=== PATIENT | female | born 1965 | race African-American/Black ===

== ENCOUNTER 2016-10-05 11:06 | Emergency (ER) | payer OTHER ==
[~2016-10-05] VITALS: Ht 167.6 cm; Wt 140.9 kg
[~2016-10-05 11:06] MED LIST: ADVIL LIQUI-GE200 MG PO; ADVIL100 MG/5 M PO; AMOXICILLIN 8751 TAB PO; CLARITIN 1010 MG/TAB PO; FLEXERIL 1010 MG/TAB PO; HCTZ12.5TAB; LORTAB 5/500 501 TAB PO; NEXIUM 40MG40 MG PO; NEXIUM40 MG PO; NORCO 325 MG-51 TAB PO; PENICILLIN250 MG PO; PHENERGAN 25 TA25 MG PO; PROAIR HFA0.09 MG/AC IH; ULTRAM 50MG TAB50 MG; ULTRAM 50MG TAB50 MG PO; XANAX1 MG PO; ZOFRAN 4MG T4 MG/TAB PO; ZOFRAN4 MG PO
[2016-10-05 11:08] VITALS: BP 162/81; PULSE 76; TEMP 97.7
[2016-10-05] MEDS ORDERED: HYGROTON 2525 MG/TAB (11:11)
[2016-10-05] MEDS ORDERED: ROBAXIN 75750 MG/TAB PO (14:02)
== END 2016-10-05 14:17 | disposition home or self-care (01) ==
LOC: COL.ER 11:06
DX: S39.012A Strain of muscle, fascia and tendon of lower back, initial encounter (principal); M54.42 Lumbago with sciatica, left side; X50.0XXA Overexertion from strenuous movement or load, initial encounter; I10 Essential (primary) hypertension
CPT/HCPCS: J1885; J2360

== ENCOUNTER 2016-12-27 12:08 | Emergency (ER) | payer OTHER ==
[~2016-12-27 12:08] MED LIST changes: +HYGROTON 2525 MG/TAB; +ROBAXIN 75750 MG/TAB PO
[2016-12-27 12:13] VITALS: BP 142/71; TEMP 98.5
[2016-12-27] MEDS ORDERED: PRILOSEC 20MG20 MG PO (12:19)
[2016-12-27] MEDS ORDERED: MICROZIDE12.5 MG PO (12:19)
[2016-12-27] MEDS ORDERED: ULTRAM 50MG TAB50 MG PO (13:00)
[2016-12-27] MEDS ORDERED: FLEXERIL 1010 MG/TAB PO (13:49)
[2016-12-27] MEDS ORDERED: NORCO 325 MG-51 TAB PO (13:53)
[2016-12-27 13:57] VITALS: PULSE 74
[2018-07-05] MEDS ORDERED: CAPSAICIN0.025% TOP (09:38)
[2018-07-05] MEDS ORDERED: MASON NATURAL325 MG PO (09:40)
[2018-07-05] MEDS ORDERED: VOLTAREN GEL 1%1 TU TP (09:40)
[2018-07-05] MEDS ORDERED: VITAMIN D32000 I1 PO (09:41)
[2018-07-05] MEDS ORDERED: PROTONIX 40MG T40 MG PO (09:42)
[2018-07-05] MEDS ORDERED: HYGROTON 2525 MG/TAB PO (09:43)
[2018-07-05] MEDS ORDERED: ALLEGRA 180MG180 MG PO (09:43)
[2018-07-05] MEDS ORDERED: [UNRECOGNIZED DRUG - OTHER] TOP (09:44)
[2018-07-05] MEDS ORDERED: ZOFRAN8 MG PO (16:02)
== END 2016-12-27 13:58 | disposition home or self-care (01) ==
LOC: COL.ER 12:08
DX: M54.32 Sciatica, left side (principal); I10 Essential (primary) hypertension; K21.9 Gastro-esophageal reflux disease without esophagitis; Z90.710 Acquired absence of both cervix and uterus
CPT/HCPCS: J1885; J2360

== ENCOUNTER 2017-02-19 09:08 | Emergency (ER) | payer OTHER ==
[~2017-02-19] VITALS: Ht 167.6 cm; Wt 143.2 kg
[~2017-02-19 09:08] MED LIST changes: +MICROZIDE12.5 MG PO; +PRILOSEC 20MG20 MG PO
[2017-02-19 09:14] VITALS: TEMP 97.9
[2017-02-19] MEDS ORDERED: ULTRAM 50MG TAB50 MG PO (09:57)
[2017-02-19] MEDS ORDERED: SKELAXIN 800MG800 MG PO (09:57)
[2017-02-19 10:56] VITALS: BP 146/98; PULSE 74
== END 2017-02-19 10:43 | disposition home or self-care (01) ==
LOC: COL.ER 09:08
DX: M54.32 Sciatica, left side (principal); I10 Essential (primary) hypertension; K21.9 Gastro-esophageal reflux disease without esophagitis; Z90.710 Acquired absence of both cervix and uterus; Z98.890 Other specified postprocedural states; X50.0XXA Overexertion from strenuous movement or load, initial encounter
CPT/HCPCS: J1885; J2360

== ENCOUNTER 2017-04-24 08:24 | Emergency (ER) | payer OTHER ==
[~2017-04-24] VITALS: Ht 167.6 cm; Wt 143.2 kg
[~2017-04-24 08:24] MED LIST changes: +SKELAXIN 800MG800 MG PO
[2017-04-24 08:27] VITALS: BP 151/74; PULSE 88; TEMP 97.6
[2017-04-24 09:07] LABS: INFLUENZA A NEGATIVE; INFLUENZA B NEGATIVE
[2017-04-24] MEDS ORDERED: AMOXICILLIN 8751 TAB PO (09:16)
[2017-04-24] MEDS ORDERED: DIFLUCAN 100MG100 MG PO (09:16)
== END 2017-04-24 09:36 | disposition home or self-care (01) ==
LOC: COL.ER 08:24
PROVIDERS: Physician Assistant
DX: J32.9 Chronic sinusitis, unspecified (principal)

== ENCOUNTER 2018-02-11 17:25 | Emergency (ER) | payer OTHER ==
[~2018-02-11] VITALS: Ht 167.6 cm; Wt 136.4 kg
[~2018-02-11 17:25] MED LIST changes: +DIFLUCAN 100MG100 MG PO
[2018-02-11 17:35] VITALS: TEMP 97.6
[2018-02-11] MEDS ORDERED: FLEXERIL 1010 MG/TAB PO (18:05)
[2018-02-11] MEDS ORDERED: ULTRAM 50MG TAB50 MG PO (18:05)
[2018-02-11 19:07] VITALS: BP 142/84; PULSE 77
== END 2018-02-11 19:07 | disposition home or self-care (01) ==
LOC: COL.ER 17:25
DX: M54.5 Low back pain (principal); Z90.710 Acquired absence of both cervix and uterus
CPT/HCPCS: J1885; J2360

== ENCOUNTER 2018-11-20 22:33 | Emergency (ER) | payer OTHER ==
[~2018-11-20] VITALS: Ht 167.6 cm; Wt 145.5 kg
[~2018-11-20 22:33] MED LIST changes: +ALLEGRA 180MG180 MG PO; +CAPSAICIN0.025% TOP; +HYGROTON 2525 MG/TAB PO; +MASON NATURAL325 MG PO; +PROTONIX 40MG T40 MG PO; +VITAMIN D32000 I1 PO; +VOLTAREN GEL 1%1 TU TP; +ZOFRAN8 MG PO; +[UNRECOGNIZED DRUG - OTHER] TOP
[2018-11-20 23:08] LABS: HEMOGLOBIN 9.9 g/dl (12.5-16.0); MEAN CELL VOLUME 80 fl (80.0-100.0); MEAN CORPUSCULAR HEMOGLOBIN 24 pg (27.0-31.0); MEAN CORPUSCULAR HGB CONC 30 g/dl (33.0-37.0); PLATELET COUNT 433 K/mm3 (130-400); RED BLOOD COUNT 4.14 M/mm3 (4.10-5.30); REDCELL DISTRIBUTION WIDTH-CV 19.9 % (11.5-14.5)
[2018-11-20 23:13] LABS: ALANINE AMINOTRANSFERASE < 6 U/L (9-52); ALBUMIN 4.2 gm/dL (3.5-5.0); ALKALINE PHOSPHATASE 91 U/L (50-136); ANION GAP 11 mmol/L (7-16); AST,SGOT 25 U/L (15-37); BILIRUBIN,TOTAL 0.3 mg/dL (0.0-1.0); BLOOD UREA NITROGEN 17 mg/dL (7-17); CALCIUM 9.3 mg/dL (8.4-10.2); CARBON DIOXIDE 27 mmol/L (22-30); CHLORIDE 101 mmol/L (98-107); GLUCOSE 98 mg/dL (74-106); POTASSIUM 3.5 mmol/L (3.4-5.0); SODIUM 139 mmol/L (137-145); TOTAL PROTEIN 8.3 gm/dL (6.4-8.2)
[2018-11-20 23:24] LABS: TROPONIN-I < 0.012 ng/mL (0.000-0.035)
[2018-11-21] LABS: BASOPHIL 1 % (0-2); LYMPHOCYTE 44 % (20.0-51.0); NEUTROPHILS 49 % (42.0-75.2)
[2018-11-21 00:01] LABS: ANISOCYTOSIS 1+; HYPOCHROMIA 1+; PLATELET ESTIMATE INCREASED (NORMAL)
[2018-11-21 00:02] LABS: OVALOCYTES 1+
[2018-11-21 01:21] VITALS: BP 116/77; PULSE 66; TEMP 97.6
== END 2018-11-21 01:12 | disposition home or self-care (01) ==
LOC: COL.ER 22:33
PROVIDERS: Emergency Medicine
DX: J06.9 Acute upper respiratory infection, unspecified (principal); R07.89 Other chest pain; I10 Essential (primary) hypertension; E66.9 Obesity, unspecified; K21.9 Gastro-esophageal reflux disease without esophagitis; Z68.43 Body mass index [BMI] 50.0-59.9, adult

== ENCOUNTER 2021-02-04 11:10 | Emergency (ER) | payer SELFPAY ==
[~2021-02-04] VITALS: Ht 167.6 cm; Wt 99.5 kg
[2021-02-04 11:45] VITALS: BP 160/81; TEMP 98
[2021-02-04 11:50] VITALS: PULSE 65
[2021-02-04] MEDS ORDERED: FLEXERIL 1010 MG/TAB PO (12:40)
== END 2021-02-04 12:55 | disposition home or self-care (01) ==
LOC: COL.ER 11:10
DX: S13.4XXA Sprain of ligaments of cervical spine, initial encounter (principal); V49.40XA Driver injured in collision with unspecified motor vehicles in traffic accident, initial encounter

== ENCOUNTER → 2021-09-30 | Outpatient (CLI) | payer OTHER | LOC: COL.RAD 07:21 | DX: K21.9 Gastro-esophageal reflux disease without esophagitis (principal) ==

== ENCOUNTER 2021-10-07 11:42 | Emergency (ER) | payer OTHER ==
[~2021-10-07] VITALS: Ht 170.2 cm; Wt 100.0 kg
[2021-10-07 13:13] VITALS: TEMP 98
[2021-10-07] MEDS ORDERED: PEN-VEE K250 MG PO (14:57)
[2021-10-09 12:54] VITALS: BP 160/81; PULSE 95
== END 2021-10-07 15:14 | disposition home or self-care (01) ==
LOC: COL.ER 11:42
DX: K08.89 Other specified disorders of teeth and supporting structures (principal)